=== PATIENT | male | born 1995 | race Two or more races ===

== ENCOUNTER 2019-01-16 09:49 | Emergency (ER) | payer OTHER ==
[~2019-01-16] VITALS: Ht 175.3 cm; Wt 122.5 kg
[2019-01-16 10:51] LABS: Hepatitis B Surface Antibody Negative
[2019-01-16 10:59] VITALS: BP 118/70
[2019-01-16] MEDS: TETANUS-DIPTH-ACEL PERTUSSIS 0.5ML SYRG IM ONE (11:02)
[2019-01-16 12:25] LABS: Hepatitis B Surface Antigen Negative (Negative)
== END 2019-01-16 11:16 | disposition home or self-care (01) ==
LOC: ER 09:51
DX: S61.432A Puncture wound without foreign body of left hand, initial encounter (principal); W46.0XXA Contact with hypodermic needle, initial encounter; Y93.89 Activity, other specified; Y92.69 Other specified industrial and construction area as the place of occurrence of the external cause; Y99.8 Other external cause status
CPT/HCPCS: 36415; 86703; 86706; 86803; 87340; 90471; 90715